=== PATIENT | male | born 1945 | race Caucasian/White ===

== ENCOUNTER 2018-12-14 12:40 | Outpatient (CLI) | payer MEDICARE ==
--- NOTE | 2018-12-14 14:39 | CT ---
CT HEAD NONCONTRAST: History: Slurred speech. Comparison: 10-17-16 FINDINGS: There is generalized atrophy with compensatory dilatation of the ventricular system. Mild chronic jordan rovascular ischemic disease is present. No intracranial hemorrhage, mass effect, or midline shift. IMPRESSION: 1. No acute intracranial abnormalities. 2. Global atrophy. 3. Chronic microvascular ischemic disease. POS: [facility]
== END 2018-12-14 12:41 | disposition home or self-care (01) ==
LOC: BICCT 12:40
PROVIDERS: ATTEND Nurse Practitioner Family
DX: R47.81 Slurred speech (principal); G31.9 Degenerative disease of nervous system, unspecified; I67.82 Cerebral ischemia
CPT/HCPCS: 70450

== ENCOUNTER 2020-05-20 16:29 | Inpatient (IN) | payer MEDICARE, OTHER ==
[~2020-05-20 16:29] MED LIST: Iopamidol-370 76% 500 ML 1 ML ONE
[2020-05-20] MEDS ORDERED: niCARdipine 20MG In NaCl 20 MG/200 ML BAG ONE (16:55)
[2020-05-20 17:15] LABS: #Basophils 0.1 thou/uL (0.0-0.2); #Eosinphils 0.2 thou/uL (0.0-0.7); #Lymphocytes 1.3 thou/uL (1.20-3.40); #Monocytes 0.9 thou/uL (0.11-0.59); #Neutrophils 4.6 thou/uL (1.40-6.50); %Basophils 0.8 % (0.0-1.0); %Lymphocytes 18.1 % (21.0-51.0); %Monocytes 13.3 % (0.0-10.0); %Neutrophils 64.7 % (42.0-75.0); Hemoglobin 15.7 g/dL (14.0-18.0); Mean Corpuscular HGB CONC 34.1 g/dL (32.0-36.0); Mean Corpuscular Hemoglobin 32.3 pg (27.0-31.0); Mean Corpuscular Volume 94.9 fL (78.0-98.0); Mean Platelet Volume 7.8 fL (7.4-10.4); Platelet Count 351 thou/uL (130-400); RBC Distribution Width 12.4 % (11.5-14.5); Red Blood Cell (RBC) Count 4.86 mill/uL (4.70-6.10); White Blood Cell (WBC) Count 7.1 thou/uL (4.8-10.8)
[2020-05-20 17:19] LABS: INR-International Normal Ratio 0.9; PTT 32.6 sec (22.9-36.1); Prothrombin Time 12.4 sec (12.0-14.7)
[2020-05-20 17:33] LABS: ALT (SGPT) 28 U/L (8-55); AST (SGOT) 33 U/L (5-34); Albumin 3.9 g/dL (3.4-4.8); Alkaline Phosphatase 92 U/L (40-110); Anion Gap 15 mmol/L (10-20); BUN (Urea Nitrogen) 18 mg/dL (8.4-25.7); Bilirubin, Total 0.5 mg/dL (0.2-1.2); CK (CPK) 94 U/L (30-200); Calc. Creatinine Clearance 0 mL/min (70-130); Calcium 8.9 mg/dL (7.8-10.44); Carbon Dioxide 24 mmol/L (23-31); Chloride 104 mmol/L (98-107); Estimated GFR-MDRD 77; Globulin 3.4 g/dL (2.4-3.5); Glucose 137 mg/dL (83-110); Protein, Total 7.3 g/dL (5.8-8.1); Sodium 139 mmol/L (136-145)
--- NOTE | 2020-05-20 17:51 | CT ---
CT BRAIN WITHOUT CONTRAST: Indications: Level I stroke alert. Aphasia, right sided weakness. Comparison: 12-14-18 FINDINGS: There is cortical atrophy again noted. Chronic ischemic white matter changes again noted. No evidence of acute cortical infarct. No hemorrhage or mass. Sinuses and mastoids are clear. IMPRESSION: Chronic changes which appear stable. No evidence of acute infarct. Findings relayed to Dr. Mccarty at 4:45 p.m. POS: [facility]
[2020-05-20] MEDS ORDERED: Acetaminophen 325 MG TAB PO PRN (18:03)
[2020-05-20 18:17] LABS: Bilirubin Negative (Negative); Blood, Urine Negative (Negative); Clarity Clear (Clear); Glucose, Urine (Dipstick) Normal (Negative); Ketone, Urine Negative (Negative); Leukocyte Negative Leu/uL (Negative); Nitrite Negative (Negative); Protein, Urine (Dipstick) Negative (Neg-Trace); Specific Gravity, Urine 1.017 (1.002-1.036); Urobilinogen Normal mg/dL (Less than 2); pH, Urine 7.5 (5.0-9.0)
--- NOTE | 2020-05-20 18:45 | CT ---
CTA HEAD WITH IV CONTRAST: Technique: Axial tomograms were obtained through the head following an angio protocol with multiplana r reconstruction and 3D post processing. Indication: Stroke protocol. Right sided weakness and aphasia. FINDINGS: There is occlusion of the left internal carotid artery at its origin. The intracranial left internal carotid artery is occluded in the temporal segment but does reconstitute in the cavernous portion of the ICA secondary to collateral flow from [place] of [place]. The right intracranial internal carotid artery is patent. The anterior cerebral arteries are patent and symmetric. Middle cerebral arteries are patent. There is no focal occlusion involving M1 segment. The M2 and M3 branches appear symmetric. The basilar artery is patent. Both posterior cerebral arteries appear patent. IMPRESSION: 1. 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 The left ICA reconstitutes at the cavernous sinus. 2. No proximal cerebral artery stenosis or occlusion identified. CTA NECK: Axial tomograms were obtained with multiplanar reconstructions and 3D post processing. Indications: Stroke protocol. FINDINGS: Atherosclerotic changes are seen at the aortic arch. No significant stenosis at the arch vessels. The common carotid arteries are both tortuous but are patent without significant stenosis. On the left there is severe atherosclerotic change at the left bulb. There is calcified and soft plaq ue present. There is occlusion of the left ICA at its origin. On the right there are atherosclerotic changes in the bulb and proximal right ICA. No significant shey nosis in the right ICA. Vertebral arteries are patent and symmetric. No soft tissue abnormality identified. IMPRESSION: 1. Occlusion of the left ICA at its origin. Finding relayed to Dr. Mccarty. Code CR POS: [facility]
[2020-05-20] MEDS ORDERED: Labetalol HCl 100 MG/20 ML VIAL SLOW IVP PRN (18:52)
[2020-05-20] MEDS ORDERED: hydrALAZINE 20 MG/ML VIAL SLOW IVP PRN (18:52)
[2020-05-20] MEDS ORDERED: Sodium Chloride 0.9% 1,000 ML IV SCH (19:00)
--- NOTE | 2020-05-20 19:17 | HP ---
CHIEF COMPLAINT: CVA with right-sided hemiparesis and aphasia. HISTORY OF PRESENT ILLNESS: A 75-year-old male with history of CVA without residual deficits and hypertension, presenting with right hemiparesis and expressive aphasia. The patient lives with his . This morning prior to arrival, he was noted to be not talking much, starring at open space per his . She called EMS. On arrival of the EMS, his blood pressure was 250/120. He arrived within 45 minutes to the ER. He was given labetalol and started on Cardene drip and his blood pressure improved with systolic in the range of [address] head is negative. However, CT angiogram showed left ICA obstruction. Neurosurgery, Dr. Tubbs, has been consulted by the ER physician. 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 Since patient arrived within 3 hours, he was given a tPA. Cardene drip was stopped after 5 minutes of initiation as his systolic blood pressure improved to 130 range. His symptoms of right-sided seems to be improving. He is moving his right arm, but still has significant aphasia. He will be admitted to the ICU for the next 24- hour close monitoring. Some of the information gathered from his as patient exhibits aphasia, but he is alert, oriented, and able to scribble something in the paper. REVIEW OF SYSTEMS: Reviewed with the and she denies any recent fever, night sweats, chills, productive cough per spouse. No recent episodes of vomiting or abdominal complaints. Complete review of systems not obtainable. ALLERGIES: HE HAS NO KNOWN DRUG ALLERGY. PAST MEDICAL HISTORY: CVA in the past without residual deficits, hypertension. He has a history of vertigo. MEDICATIONS: 1. Lipitor 40 mg at bedtime. 2. Antivert 25 mg t.i.d. 3. Lisinopril 20 mg daily. 4. Hydrochlorothiazide 12.5 mg daily. 5. Aspirin 325 mg daily. 6. Norvasc 5 mg at bedtime. SOCIAL HISTORY: He is a former tobacco abuser, quit roughly 20 years ago. No alcohol use. Lives with his . FAMILY HISTORY: Mother of complications from stroke at age 80 and father at age 80 with cardiovascular disease. PHYSICAL EXAMINATION: VITAL SIGNS: He is afebrile. Monitor show systolic blood pressure in the 130 range. He is saturating with 2 L oxygen by nasal cannula of 92%. GENERAL: The patient is alert, oriented, but he is not able to talk, but he is able to scribble. NEUROLOGICAL: Both the left upper and lower extremities have 4/5 in strength. Right upper extremity 1/5 in strength and right lower extremity 4/5 in strength. Sensation intact. Did not notice any significant facial droopiness. No nystagmus. Cranial nerves 2-12 seems to be intact. CARDIOVASCULAR: Regular rate and rhythm without murmurs, rubs, or gallops. LUNGS: Clear to auscultation bilaterally without wheezing, rales, or rhonchi. ABDOMEN: Soft, nontender, nondistended. Good bowel sounds. EXTREMITIES: No noticeable pitting edema or rash. LABORATORY DATA: CBC in the normal range. BMP, creatinine 0.95. Rest of the BMP panel, CMP panel in the normal range. Troponin 0.022. INR 0.9. IMPRESSION AND PLAN: This is a 75-year-old male with a history of CVA in the past without residual symptoms and hypertension, presenting with; 1. Right hemiparesis. 2. Expressive aphasia. 3. Hypertensive emergency with a history of hypertension. 4. He is status post tPA. He will be admitted in the ICU. We will do frequent neuro checks. 2D echo as well as carotid Doppler ordered along with MRA of the brain. Neurology consult placed. We will not initiate aspirin for next 24 hours. Close monitoring. If he is stable, then will transfer him to the Telemetry Stroke Unit. PT/OT as well as Speech evaluation. Nothing by mouth until Speech evaluation completed. No aspirin and anticoagulant for the next 24 hours. 5. Permissive hypertension until Systolic above 180 or diastolic above 110. 6. Hypertensive emergency, status post labetalol as well as transient Cardene drip. His blood pressure currently in the systolic 130 range, allow permissive hypertension next 24 to 48 hours. 7. We will check his A1c, lipid panel as well as TSH for completeness of the workup. 8. He is a full code. Defer anticoagulant and hypotonic solution as well as NSAIDs for now. 9. Full code. Job ID: [id number] [facility]
[2020-05-20] MEDS: Communication Order-Pharmacy FS SCH (23:36)
[2020-05-20] MEDS: Atorvastatin Calcium 40 MG TAB PO SCH (23:45)
[2020-05-20] MEDS: Famotidine/PF 20 mg/2ml Vial SLOW IVP SCH (23:51)
[2020-05-20 23:54] VITALS: BMI 24.5
--- NOTE | 2020-05-21 07:23 | CT ---
PRELIMINARY REPORT/[facility]/EMERGENCY AFTER HOURS PROCEDURE: EXAM: CT Head Without Intravenous Contrast. CLINICAL HISTORY: S/P t-PA TECHNIQUE: Axial computed tomography images of the head/brain without intravenous contrast. COMPARISON: CT\SR - CT BRAIN WO CON - 05/20/2020 04:37 PM CDT FINDINGS: BRAIN: No acute intraparenchymal hemorrhage. No mass lesion. No CT evidence for acute territorial infarct. N o midline shift or extra-axial collection. Hypodensity of the white matter is nonspecific but likely represents chronic microvascular ischemic d isease. VENTRICLES: No hydrocephalus. Volume loss. ORBITS: The orbits are unremarkable. SINUSES AND MASTOIDS: The paranasal sinuses and mastoid air cells are clear. SOFT TISSUES: No significant facial or scalp soft tissue swelling evident. No radiopaque foreign body is seen. BONES: No acute skull fracture. IMPRESSION: Chronic parenchymal changes. No acute intracranial hemorrhage. ELECTRONICALLY SIGNED BY: Tran De La Rosa MD May 21, 2020 3:59:49 AM CDT This report is intended for review by the ordering physician only, in accordance of law. If you recei ve this report in error, please call [facility] at [phone]. FINAL REPORT EMERGENCY AFTER HOURS CT BRAIN: I agree with the preliminary report provided by [facility]. No definite acute abnormality is evident. There is stable severe chronic small vessel white matter is chemic change with remote lacunar infarctions involving the basal ganglia bilaterally. POS:
[2020-05-21 08:38] LABS: Actual Bicarbonate (HCO3a) 22.7 mEq/L (22-28); Base Excess (BEa) -0.2 mEq/L (-2.0 to +3.0); CO2 Tension 32.8 mmHg (35.0-45.0); Calcium, Ionized (arterial) 1.13 mmol/L (1.12-1.30); Carboxyhemoglobin (COHb) 0.7 gm% (0.0-3.0); Hemoglobin (Hb) 16.3 g/dL (14.0-18.0); O2 Tension (PaO2), arterial 77.3 mmHg (> 70.0); Potassium - ABG Lab 4.06 mmol/L (3.70-5.30); pH, Arterial 7.46 (7.35-7.45)
[2020-05-21 08:39] LABS: Puncture Site LRA
--- NOTE | 2020-05-21 08:43 | MRI ---
MRI BRAIN WITH AND WITHOUT CONTRAST: DATE: 05/21/2020 HISTORY: 75-year-old male with acute stroke symptoms: Dysarthria. COMPARISON: 10/18/2016 TECHNIQUE: Multiplanar, multisequence MRI of the brain performed pre- and post-IV injection of gadolinium based contrast agent. FINDINGS: There is a new finding of 2 punctate foci of restricted diffusion in the left cerebral hemisphere rep resenting tiny acute lacunar infarctions. One of them is in the left periventricular white matter santiago radiata. The other is located superiorly near the vertex at junction between left superior fro ntal gyrus and middle frontal gyrus. There is a new finding of absence of normal flow void of the left carotid siphon. There are normal fl ow voids in the proximal vessels of left MCA and left MELO, by collateral circulation. There are no additional new findings since 10/18/2016. There are moderate chronic ischemic white matter changes of the cerebrum and brainstem, as previously demonstrated. There are multiple tiny old lacunar infarctions in the bilateral deep cerebral white matter, basal ga nglia, thalami, and james. There are multiple punctate tiny foci of remote microhemorrhages, including one in the right postcent ral gyrus, one in the right santiago radiata, many in the bilateral thalami, a few in the bilateral basal ganglia, one in the right midbrain cerebral peduncle, one in the right james, and several in the bilateral cerebellum. These are consistent with chronic hypertensive encephalopathy and/or cerebral amyloid angiopathy. There is a more confluent, larger hemosiderin stain in the posterior aspect of the right basal gangli a at junction with posterior aspects of right external and internal capsules. Postcontrast images are degraded by patient motion. No abnormal intra-axial enhancement identified. D ural venous sinuses are patent. There is no acute hemorrhage, mass effect, midline shift, or obstructive hydrocephalus, extra-axial f luid collection. IMPRESSION: 1) 2 tiny, punctate acute infarctions in the left cerebrum. 2) numerous tiny old lacunar infarctions in the bilateral basal ganglia, thalami, and brainstem. 3) evidence of old hemorrhage in right basal ganglia. 4) numerous, punctate, tiny microhemorrhages in the brain: Evidence for chronic hypertensive encephal opathy and/or cerebral amyloid angiopathy. 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 This occurred s ometime after the previous MRI of 10/18/2016.
--- NOTE | 2020-05-21 08:50 | ULT ---
CAROTID DOPPLER: Ultrasound Doppler study is performed of the extracranial carotid arteries. INDICATION: CVA. CTA of head and neck performed earlier today described left internal carotid artery occlusion a t its origin. FINDINGS: The extracranial arteries are evaluated with ultrasound and Doppler with color Doppler, spectral anal ysis, and velocity recordings. FINDINGS: Occlusion of the left internal carotid artery is identified by ultrasound which corresponds to the CT A findings. Right internal carotid artery velocities are within normal range. No evidence of significant stenosi s seen in the right internal carotid artery. The vertebral arteries are antegrade. IMPRESSION: Findings correspond to the CTA. There is occlusion of the left internal carotid artery at its origin . No evidence of stenosis in the right internal carotid artery. POS: [facility]
[2020-05-21 08:56] LABS: #Eosinphils 0.2 thou/uL (0.0-0.7); #Lymphocytes 1.4 thou/uL (1.20-3.40); #Monocytes 1.3 thou/uL (0.11-0.59); #Neutrophils 9.5 thou/uL (1.40-6.50); %Basophils 0.3 % (0.0-1.0); %Eosinophils 1.2 % (0.0-10.0); %Lymphocytes 10.9 % (21.0-51.0); %Monocytes 10.8 % (0.0-10.0); %Neutrophils 76.7 % (42.0-75.0); Hemoglobin 15.8 g/dL (14.0-18.0); Mean Corpuscular HGB CONC 33.6 g/dL (32.0-36.0); Mean Corpuscular Hemoglobin 31.9 pg (27.0-31.0); Mean Corpuscular Volume 95.1 fL (78.0-98.0); Mean Platelet Volume 6.9 fL (7.4-10.4); Platelet Count 344 thou/uL (130-400); RBC Distribution Width 12.4 % (11.5-14.5); Red Blood Cell (RBC) Count 4.93 mill/uL (4.70-6.10); White Blood Cell (WBC) Count 12.3 thou/uL (4.8-10.8)
[2020-05-21 09:02] LABS: PTT 32.2 sec (22.9-36.1); Prothrombin Time 13.2 sec (12.0-14.7)
[2020-05-21 09:11] LABS: CKMB 2.4 ng/mL (0-6.6); Phosphorus 2.5 mg/dL (2.3-4.7)
[2020-05-21 09:18] LABS: ALT (SGPT) 27 U/L (8-55); AST (SGOT) 24 U/L (5-34); Albumin 4.1 g/dL (3.4-4.8); Alkaline Phosphatase 85 U/L (40-110); Anion Gap 16 mmol/L (10-20); BUN (Urea Nitrogen) 16 mg/dL (8.4-25.7); Bilirubin, Total 1.1 mg/dL (0.2-1.2); Calc. Creatinine Clearance 89 mL/min (70-130); Calcium 8.9 mg/dL (7.8-10.44); Carbon Dioxide 21 mmol/L (23-31); Chloride 104 mmol/L (98-107); Estimated GFR-MDRD Greater than 90; Globulin 2.9 g/dL (2.4-3.5); Glucose 146 mg/dL (83-110); Magnesium 1.9 mg/dL (1.6-2.6); Potassium 4.2 mmol/L (3.5-5.1); Sodium 137 mmol/L (136-145)
[2020-05-21] MEDS: niCARdipine 25 MG in Sodium Chloride 0.9% 250 ML 240 ML IVPB PRN ×2 (09:40→20:11)
[2020-05-21] MEDS: Famotidine/PF 20 mg/2ml Vial SLOW IVP SCH ×2 (09:54→20:12)
[2020-05-21] MEDS ORDERED: levETIRAcetam In NaCl (Iso-Os) 1,500 MG in Premix Bag 1 BAG IVPB SCH (10:00)
[2020-05-21] MEDS ORDERED: Magnevist 469MG/ML 20 ML VIAL ONE (11:20)
[2020-05-21 12:13] LABS: Cardiac Risk 5.5 (Less than 4.5)
--- NOTE | 2020-05-21 12:35 | CON ---
NEUROLOGY CONSULTATION DATE OF CONSULTATION: 05/21/2020 REASON FOR CONSULTATION: Acute CVA, status post tPA. HISTORY OF PRESENT ILLNESS: Mr. Courtney Franco is a 75-year-old male with a history of prior CVA with residual deficits, hypertension, and hyperlipidemia, presented with acute onset right-sided weakness and expressive aphasia. According to the prior to arrival, he was not able to talk and was staring off in space. The called the EMS and at that time, the blood pressurewas 250/120. He arrived to the emergency room within [address] was done, which was negative for acute intracranial pathology. CT angiogram showed left ICA occlusion. Dr. Tubbs from Neurosurgery was consulted for possible intervention, but since this was chronic left ICA, no thrombectomy was done. The patient was given tPA since he was within 3-hour window. He was started on Cardene drip, which was later stopped because the blood pressure improved. The patient continues to have significant aphasia and right hemiparesis. He was given tPA and was admitted to the CCU for further management. REVIEW OF SYSTEMS: Per , he denies recent fever, illness, chest pain, abdominal pain, nausea, vomiting, or headache. ALLERGIES: NO KNOWN DRUG ALLERGIES. PAST MEDICAL HISTORY: Hypertension, hyperlipidemia, history of vertigo, and prior CVA without any residual deficits. SOCIAL HISTORY: , lives with his . There is no history of smoking, alcohol, or illegal drug abuse. HOME MEDICATIONS: 1. Lipitor 40 mg at bedtime. 2. Antivert 25 mg t.i.d. 3. Lisinopril 20 mg daily. 4. Hydrochlorothiazide 12.5 mg daily. 5. Aspirin 325 mg daily. 6. Norvasc 5 mg daily. FAMILY HISTORY: Significant for cardiovascular disease and stroke. - Objective Vital Signs & Weight: Vital Signs (12 hours) Temp Pulse Resp BP Pulse Ox 05/21/20 08:24 93 22 H 180/101 H 100 05/21/20 07:00 97.9 F 05/21/20 04:00 98.0 F Weight Weight 171 lb 4.787 oz Most Recent Monitor Data Heart Rate from ECG 109 NIBP 134/70 NIBP BP-Mean 88 Respiration from ECG 20 SpO2 98 I&O: 05/20/20 05/21/20 05/22/20 06:59 06:59 06:59 Intake Total 248 Output Total 395 525 Balance -147 -525 Additional Labs: Accuchecks 05/21/20 05/20/20 08:32 16:40 POC Glucose 136 H 141 H Active Medications Generic Name Dose Route Start Last Admin Trade Name Freq PRN Reason Stop Dose Admin Atorvastatin Calcium 40 mg 05/20/20 21:00 05/20/20 23:45 Lipitor PO Not Given HS ELSIE Famotidine 20 mg 05/20/20 21:00 05/21/20 09:54 Pepcid SLOW IVP 20 mg Q12HR ELSIE Administration Nicardipine HCl 25 mg/ Sodium 250 mls @ 0 mls/hr 05/20/20 18:52 05/21/20 09: 40 Chloride IVPB 250 mls INF PRN Administration SBP > 180 or DBP > 105 Protocol Titrate Sodium Chloride 1,000 mls @ 50 mls/hr 05/20/20 19:00 05/20/20 23:45 Normal Saline 0.9% IV 05/21/20 14:59 1,000 mls .Q20H [facility] Administration Miscellaneous Information 1 each 05/20/20 18:52 05/20/20 23:36 Communication Order-Pharmacy FS 05/21/20 18:53 Not Given NOW [facility] PHYSICAL EXAMINATION: CVS: Regular rate and rhythm. CHEST: Clear. ABDOMEN: Soft. NECK: Supple. NEUROLOGICAL EXAMINATION: Mental status; the patient is somnolent. He does not follow commands. He does not maintain eye contact. Cranial nerves; pupils are 4 mm, round and reactive to light. Face; right facial droop, left gaze preference. Corneals positive. Cough positive. Motor; right hemiparesis, right upper extremity 1/5, right lower extremity 2/5. Left upper and lower extremity 5/5. Spontaneous movement of the left upper and lower extremities seen. Sensory withdraws bilaterally to nailbed pressure, left greater than right. Cerebellar, unable to perform secondary to mental status. Gait deferred due to the patient's safety reasons. DATA REVIEWED: I reviewed the CT scan, which was negative for acute intracranial pathology. The labs were essentially unremarkable, which include CBC and CMP. ASSESSMENT AND PLAN: This is a 75-year-old male with history of prior cerebrovascular accident without residual symptoms, hypertension, hyperlipidemia , presented with acute onset expressive aphasia and right hemiparesis in the setting of hypertensive emergency. He is status post tPA and admitted to the CCU. Continue neuro checks every 2 hours. 2D echo to evaluate for left ventricular ejection fraction. MRI of the brain to evaluate for the extent of acute intracranial pressures. Permissive control of blood pressure at this time. Stat EEG ordered since the patient has had an episode of seizure-like activity. He is already loaded with Keppra 1500 mg IV and started on 500 mg IV q.12 hours. Continue Keppra 500 mg IV q.12 hours for seizure prophylaxis. Observe seizure precautions. No anticoagulation. Repeat head CT reviewed, which did not reveal any bleed or hemorrhage. No aspirin or other anticoagulants for the first 24 hours post tPA. Check hemoglobin A1c, lipid panel, and TSH. Continue home medications. Continue medical management per primary team. We will continue to follow. Thank you for the consult. Job ID: [id number] [facility]
[2020-05-21 12:36] LABS: SARS-CoV-2 MS2 Positive; SARS-CoV-2 N Gene Negative; SARS-CoV-2 S Gene Negative; SARS-CoV-2 by NAA Not Detected (NotDetected); SARS-CoV-2 orf1ab Negative
--- NOTE | 2020-05-21 14:16 | EEG ---
DATE OF SERVICE: 05/21/2020 ATTENDING PHYSICIAN: Talya Vincent MD This EEG was performed using 24-channel [employer]ikest[employer] video digital EEG machine with 24- disk electrodes. This was an extended 2 hours 5 minutes of inpatient video EEG recording. Digital analysis of the EEG was done for spike and seizure detection , which revealed no abnormalities. BACKGROUND: The posterior background rhythm was not observed. HYPERVENTILATION: Not performed. PHOTIC STIMULATION: No significant response seen with for stimulation. SLEEP: Drowsiness and sleep are observed. EEG DIAGNOSIS: 1. Generalized irregular theta activity, left greater than right. 2. Absence of posterior background rhythm. CLINICAL INTERPRETATION: This EEG is consistent with focal segment dysfunction in the left frontotemporal region. There is also evidence of moderate generalized nonspecific cerebral dysfunction. No ictal or interictal epileptiform abnormalities seen during the recording. Job ID: [id number] [facility]
--- NOTE | 2020-05-21 14:25 | PDOC.HOSPP ---
- Subjective Encounter Date: 05/21/20 Encounter Time: 09:20 Subjective: Nursing called me urgently this morning about patient's clinical worsening condition. He went to the MRI and after MRI he became quite unresponsive.. Before going to MRI his systolic blood pressure 168 and oxygenating well. He was following commands and on 2 L oxygen. After MRI is completed his systolic blood pressure was 200 range and satting 92%. he was not opening eyes and not following commands. Stat ABG looked okay. His lactic acid is 3. we are running a normal saline at 50. Echo is completed at bedside. While I was observing him and discussing with the RN his clinical course this morning patient has a cough. He is responding to tactile stimulation on his left arm. His right side is flaccid. Touch base with Dr. Angel briefly and the patient may need to be intubated if he is getting worse. currently he is coughing and protecting his airway. Ph 7.4 , pCO2 of 32 and pO2 of 77. - Objective Vital Signs & Weight: Vital Signs (12 hours) Temp Pulse Resp BP Pulse Ox 05/21/20 08:24 93 22 H 180/101 H 100 05/21/20 07:00 97.9 F 05/21/20 04:00 98.0 F Weight Weight 171 lb 4.787 oz Most Recent Monitor Data Heart Rate from ECG 109 NIBP 134/70 NIBP BP-Mean 88 Respiration from ECG 20 SpO2 98 I&O: 05/20/20 05/21/20 05/22/20 06:59 06:59 06:59 Intake Total 248 Output Total 395 525 Balance -147 -525 Result Diagrams: 05/21/20 08:39 05/21/20 08:39 Additional Labs: Accuchecks 05/21/20 05/20/20 08:32 16:40 POC Glucose 136 H 141 H Hospitalist ROS - Medication Medications: Active Medications Generic Name Dose Route Start Last Admin Trade Name Freq PRN Reason Stop Dose Admin Atorvastatin Calcium 40 mg 05/20/20 21:00 05/20/20 23:45 Lipitor PO Not Given HS ELSIE Famotidine 20 mg 05/20/20 21:00 05/21/20 09:54 Pepcid SLOW IVP 20 mg Q12HR ELSIE Administration Nicardipine HCl 25 mg/ Sodium 250 mls @ 0 mls/hr 05/20/20 18:52 05/21/20 09: 40 Chloride IVPB 250 mls INF PRN Administration SBP > 180 or DBP > 105 Protocol Titrate Sodium Chloride 1,000 mls @ 50 mls/hr 05/20/20 19:00 05/20/20 23:45 Normal Saline 0.9% IV 05/21/20 14:59 1,000 mls .Q20H [facility]E Administration Miscellaneous Information 1 each 05/20/20 18:52 05/20/20 23:36 Communication Order-Pharmacy FS 05/21/20 18:53 Not Given NOW [facility]E - Exam General Appearance: ill appearing Eye: PERRL ENT: normocephalic atraumatic Neck: supple Heart: RRR Respiratory: CTAB Gastrointestinal: soft, normal bowel sounds Neurological: facial droop, hemiplegia Psychiatric: normal affect, normal behavior, not oriented Hosp A/P - Plan worsening left hemiparesis Metabilic encephalopathy amyloid angiopathy - Brain MRI showed punctate acute infarct in the left cerebrum. Old lacunar infarct in the bilateral basal ganglia thalamus and brainstem. Evidence of old hemorrhage in the right basal ganglia chronic hypertensive encephalopathy associated with hypertensive changes and amyloid angiopathy. normotensive. TSH normal range LDL is 169. N.p.o. for now until more clinical stabilization. I talked to the patient's daughter Demetrice at [phone] and updated her. is Keyshawn at [phone]. Palliative consult. prognosis guarded.
--- NOTE | 2020-05-21 14:36 | CT ---
CT HEAD WITHOUT IV CONTRAST COMPARISON: 05/21/2020. MRI brain is also available for comparison obtained on 05/21/2020 and 8:15 hours. HISTORY: Altered mental status. Post TPA administration. TECHNIQUE: Axial CT imaging at 5 mm intervals from vertex through skull base without contrast FINDINGS: There is now evidence of a hyperdense left middle cerebral artery with diminished attenuation seen in the left frontal lobe including the left basal ganglia and a portion of the left temporal lobe related to acute infarction in the distribution of the left middle cerebral artery. This finding was not seen on the recent head CT or MRI examination. There is mild sulcal effacement in the region of the infarction. No intraparenchymal or extra-axial hemorrhage is identified. Again noted are remote lacunar infarctions in the right basal ganglia and each thalamus with evidence of chronic small vessel ischemic changes also again seen. Mild cerebral volume loss is again seen. Ventricular system is normal in size, shape, and position fo r the degree of sulcal atrophy. Visualized paranasal sinuses are clear. Osseous structures appear intact. No other interval change. IMPRESSION: 1. Acute infarction in the distribution of the left middle cerebral artery. A hyperdense left middle cerebral artery is present suggesting thrombus in the left middle cerebral artery. 2. No intraparenchymal or extra-axial hemorrhage is identified. 3. Chronic changes. 4. Above findings discussed with Dr. Angel on 05/21/2020 at 1429 hours.
[2020-05-21 19:06] LABS: #Eosinphils 0.1 thou/uL (0.0-0.7); #Lymphocytes 1.2 thou/uL (1.20-3.40); #Monocytes 1.5 thou/uL (0.11-0.59); #Neutrophils 10.3 thou/uL (1.40-6.50); %Basophils 0.3 % (0.0-1.0); %Eosinophils 0.4 % (0.0-10.0); %Lymphocytes 9.1 % (21.0-51.0); %Monocytes 11.4 % (0.0-10.0); %Neutrophils 78.8 % (42.0-75.0); Hemoglobin 15.6 g/dL (14.0-18.0); Mean Corpuscular HGB CONC 32.9 g/dL (32.0-36.0); Mean Corpuscular Hemoglobin 31.4 pg (27.0-31.0); Mean Corpuscular Volume 95.5 fL (78.0-98.0); Mean Platelet Volume 7.3 fL (7.4-10.4); Platelet Count 254 thou/uL (130-400); RBC Distribution Width 12.5 % (11.5-14.5); Red Blood Cell (RBC) Count 4.95 mill/uL (4.70-6.10); White Blood Cell (WBC) Count 13.1 thou/uL (4.8-10.8)
[2020-05-21 19:26] LABS: Anion Gap 17 mmol/L (10-20); BUN (Urea Nitrogen) 14 mg/dL (8.4-25.7); Calc. Creatinine Clearance 101 mL/min (70-130); Calcium 8.8 mg/dL (7.8-10.44); Carbon Dioxide 15 mmol/L (23-31); Cardiac Risk 5.4 (Less than 4.5); Chloride 108 mmol/L (98-107); Cholesterol 225 mg/dl (< 200 Desired); Estimated GFR-MDRD Greater than 90; Glucose 117 mg/dL (83-110); HDL Cholesterol 42 mg/dL (>60 Neg Risk); LDL Cholesterol, Calculated 151 mg/dL; Potassium 4.2 mmol/L (3.5-5.1); Sodium 136 mmol/L (136-145); Triglycerides 158 mg/dL (Less than 150)
[2020-05-21] MEDS: Communication Order-Pharmacy FS SCH (19:29)
[2020-05-21] MEDS: Atorvastatin Calcium 40 MG TAB PO SCH (20:13)
--- NOTE | 2020-05-21 22:30 | CON ---
DATE OF CONSULTATION: 05/21/2020 HISTORY OF PRESENT ILLNESS: Mr. Franco is a 75-year-old male, who presented with hemiparesis and received tPA. Apparently, he helped himself to MRI table today , but mild unresponsive. He has subsequently gone back for another repeat imaging of his brain, which shows a new thrombotic event. His family since made him a do not resuscitate patient. PAST MEDICAL HISTORY: Remarkable for; 1. Hypertension. 2. disorder. 3. History of vertigo. FAMILY HISTORY: Negative for lung disease in early age. His mother did from stroke. SOCIAL HISTORY: Quit smoking 20 years ago. He is not a drinker. REVIEW OF SYSTEMS: Not obtainable. PHYSICAL EXAMINATION: NEUROLOGIC: He is taking things in his left side, not spontaneously moving his right side. His pupils are equal this morning, it became asymmetric this afternoon. VITAL SIGNS: Blood pressure 120/60, heart rate 112, respiratory rates in the teens to low 20s. HEAD AND NECK: Unremarkable. LUNGS: Clear. HEART: Regular rhythm. S1 and S2 are normal. ABDOMEN: Soft and nontender. EXTREMITIES: No clubbing, cyanosis, or edema. LABORATORY DATA: White count 13.1, hemoglobin 15.6, and platelets 254. Electrolytes are unremarkable. Anion gap is 13 and creatinine is 0.7. IMPRESSION: Thrombotic cerebrovascular accident, status post tPA with a recurrence of his symptoms and a new thrombotic cerebrovascular accident this afternoon. His prognosis is extremely guarded. Family is aware of coordinating care. This is a 70 min consult with greater than 50% of the time spent on the unit with coordination of care. Job ID: [id number] MTDD
[2020-05-22] MEDS: Acetaminophen 650 MG Suppository PR PRN (00:01)
[2020-05-22 04:20] LABS: Hemoglobin A1c 6.2 % (4.0-6.0)
[2020-05-22] MEDS: Aspirin 325 mg Enteric Coated Tablet PO SCH (07:46)
[2020-05-22] MEDS: Famotidine/PF 20 mg/2ml Vial SLOW IVP SCH ×2 (07:52→20:14)
--- NOTE | 2020-05-22 10:37 | PDOC.FMACP ---
Advance Care Planning - Problem (1) Palliative care encounter Status: Acute Code(s): Z51.5 - ENCOUNTER FOR PALLIATIVE CARE (2) TIA (transient ischemic attack) Status: Acute Qualifiers: Transient cerebral ischemia type: unspecified Qualified Code(s): G45.9 - Transient cerebral ischemic attack, unspecified (3) Elevated hemoglobin A1c Status: Chronic Code(s): R73.09 - OTHER ABNORMAL GLUCOSE (4) HTN (hypertension) Status: Chronic Code(s): I10 - ESSENTIAL (PRIMARY) HYPERTENSION Qualifiers: Hypertension type: essential hypertension Qualified Code(s): I10 - Essential (primary) hypertension - Note Participants: family, palliative care Summary: Introduced Advanced Care Planning conversation to family, allowed an opportunity to decline. The diagnosis, prognosis and goals of care were discussed. Appropriate forms and documentation to accomplish the goals of care were discussed. All questions were answered. elected to transition to DNAR at this time. Please also refer to Palliative Care notes in note section. The Palliative Care Team will be engaged to assist with completion of any outstanding forms that are needed.
--- NOTE | 2020-05-22 12:05 | PDOC.HOSPP ---
- Subjective Encounter Date: 05/22/20 Encounter Time: 10:10 Subjective: I talked to the nurse patient is moving his left side spontaneously but no purposeful movement. He is not tracking his eyes are deviated to the left side. Echo showed EF of 60% mild mitral regurgitation moderately thickened aortic wall mild tricuspid regurgitation normal pulmonary artery pressure. I talked to his Meghan at [phone] along with their daughter and they are agreeable for hospice consult and their recommendations. - Objective Vital Signs & Weight: Vital Signs (12 hours) Temp Pulse Ox 05/22/20 11:41 96 05/22/20 08:00 98.6 F 98 05/22/20 04:00 98.5 F Weight Weight 169 lb 1.513 oz Most Recent Monitor Data Heart Rate from ECG 97 NIBP 136/98 NIBP BP-Mean 102 Respiration from ECG 21 SpO2 95 I&O: 05/21/20 05/22/20 05/23/20 06:59 06:59 06:59 Intake Total 248 1615 409 Output Total 395 1535 275 Balance -147 80 134 Result Diagrams: 05/21/20 18:31 05/21/20 18:31 Hospitalist ROS - Medication Medications: Active Medications Generic Name Dose Route Start Last Admin Trade Name Freq PRN Reason Stop Dose Admin Acetaminophen 650 mg 05/20/20 18:03 05/22/20 00:01 Tylenol [place] 650 mg Q4H PRN Administration Headache/Fever/Mild Pain (1-3) Aspirin 325 mg 05/22/20 09:00 05/22/20 07:46 Ecotrin PO Not Given DAILY ELSIE Atorvastatin Calcium 40 mg 05/20/20 21:00 05/21/20 20:13 Lipitor PO Not Given HS ELSIE Famotidine 20 mg 05/20/20 21:00 05/22/20 07:52 Pepcid SLOW IVP 20 mg Q12HR ELSIE Administration Nicardipine HCl 25 mg/ Sodium 250 mls @ 0 mls/hr 05/20/20 18:52 05/21/20 20: 11 Chloride IVPB 250 mls INF PRN Administration SBP > 180 or DBP > 105 Protocol Titrate Levetiracetam 500 mg/ Device 100 mls @ 200 mls/hr 05/21/20 21:00 05/22/20 07: 51 IVPB 100 mls BID ELSIE Administration - Exam General Appearance: ill appearing Eye: PERRL Eye - other findings: Eyes deviated to the lateral side pupils equal and round 3 mm in diameter ENT: normocephalic atraumatic Neck: supple Respiratory: CTAB, normal chest expansion Gastrointestinal: soft, normal bowel sounds Psychiatric: not oriented Hosp A/P - Plan worsening left hemiparesis Metabilic encephalopathy amyloid angiopathy normotensive. TSH normal range LDL is 169. N.p.o. for now until more clinical stabilization. I talked to the patient's daughter Demetrice at [phone] and updated her. is Keyshawn at [phone]. Palliative consult. prognosis guarded. - Brain MRI showed punctate acute infarct in the left cerebrum. Old lacunar infarct in the bilateral basal ganglia thalamus and brainstem. Evidence of old hemorrhage in the right basal ganglia chronic hypertensive encephalopathy associated with hypertensive changes and amyloid angiopathy. Echo showed EF of 60% mild mitral regurgitation moderately thickened aortic wall mild tricuspid regurgitation normal pulmonary artery pressure. I talked to his Meghan at [phone] along with their daughter and they are agreeable for hospice consult and their recommendations. DNAR
--- NOTE | 2020-05-22 12:35 | PDOC.HOSPP ---
- Subjective Encounter Date: 05/22/20 Subjective: NEUROLOGY PROGRESS NOTE Patient extremely somnolent and does not follow commands. - Objective Vital Signs & Weight: Vital Signs (12 hours) Temp Pulse Ox 05/22/20 11:41 96 05/22/20 08:00 98.6 F 98 05/22/20 04:00 98.5 F Weight Weight 169 lb 1.513 oz Most Recent Monitor Data Heart Rate from ECG 95 NIBP 153/97 NIBP BP-Mean 107 Respiration from ECG 22 SpO2 90 I&O: 05/21/20 05/22/20 05/23/20 06:59 06:59 06:59 Intake Total 248 1615 409 Output Total 395 1535 275 Balance -147 80 134 Result Diagrams: 05/21/20 18:31 05/21/20 18:31 Radiology Reviewed by me: Yes EKG Reviewed by me: Yes Hospitalist ROS - Review of Systems ROS unobtainable: due to mental status - Medication Medications: Active Medications Generic Name Dose Route Start Last Admin Trade Name Freq PRN Reason Stop Dose Admin Acetaminophen 650 mg 05/20/20 18:03 05/22/20 00:01 Tylenol [place] 650 mg Q4H PRN Administration Headache/Fever/Mild Pain (1-3) Aspirin 325 mg 05/22/20 09:00 05/22/20 07:46 Ecotrin PO Not Given DAILY ELSIE Atorvastatin Calcium 40 mg 05/20/20 21:00 05/21/20 20:13 Lipitor PO Not Given HS ELSIE Famotidine 20 mg 05/20/20 21:00 05/22/20 07:52 Pepcid SLOW IVP 20 mg Q12HR ELSIE Administration Nicardipine HCl 25 mg/ Sodium 250 mls @ 0 mls/hr 05/20/20 18:52 05/21/20 20: 11 Chloride IVPB 250 mls INF PRN Administration SBP > 180 or DBP > 105 Protocol Titrate Levetiracetam 500 mg/ Device 100 mls @ 200 mls/hr 05/21/20 21:00 05/22/20 07: 51 IVPB 100 mls BID ELSIE Administration - Exam General Appearance: ill appearing Eye: anicteric sclera ENT: normocephalic atraumatic Neck: supple Heart: RRR Respiratory: CTAB Gastrointestinal: soft Extremities: no cyanosis Skin: normal turgor Neurological: facial droop, hemiplegia, speech deficit Neurological - other findings: Left gaze preference, left hemiparesis. Musculoskeletal: normal tone Psychiatric: not oriented, somnolent, lethargic Hosp A/P (1) Acute CVA (cerebrovascular accident) Code(s): I63.9 - CEREBRAL INFARCTION, UNSPECIFIED Status: Acute (2) Vertigo Code(s): R42 - DIZZINESS AND GIDDINESS Status: Acute (3) Dyslipidemia Code(s): E78.5 - HYPERLIPIDEMIA, UNSPECIFIED Status: Chronic (4) Elevated hemoglobin A1c Code(s): R73.09 - OTHER ABNORMAL GLUCOSE Status: Chronic (5) HTN (hypertension) Code(s): I10 - ESSENTIAL (PRIMARY) HYPERTENSION Status: Chronic Qualifiers: Hypertension type: essential hypertension Qualified Code(s): I10 - Essential (primary) hypertension - Plan PT/OT, speech therapy, DVT proph w/SCDs 75 year old with speech deficit and acute onset left sided weakness. S/P tpa. MRI Brain reviewed which was consistent with acute infarction. No evidence of hemorrhage on imaging 24 hours post tpa. Consider starting aspirin for secondary stroke prevention. Permissive BP control. Neurochecks every 2 hours. Strict control of BG. Continue Keppra for seizure prophylaxis. EEG reviewed and was negative for seizure activity. Observe seizure precautions. Ativan 2 mg IV for seizure greater than 2 minutes. Continue medical management per primary team.
--- NOTE | 2020-05-22 15:32 | PRG ---
DATE OF SERVICE: 05/22/2020 SUBJECTIVE: Courtney Franco is clinically unchanged. He is still hemiplegic. He is fidgety. OBJECTIVE: VITAL SIGNS: Heart rates in the 90s, blood pressure is 155/92, respiratory rates in the 20s. LUNGS: Unchanged. HEART: Unchanged. ABDOMEN: Unchanged. LABORATORY DATA: No new lab today. IMPRESSION: Thrombotic CVA. Apparently, the family is bringing discharge plans. Job ID: [id number]
[2020-05-22] MEDS: Atorvastatin Calcium 40 MG TAB PO SCH (19:22)
[2020-05-23 06:01] LABS: #Monocytes 1.6 thou/uL (0.11-0.59); #Neutrophils 10.6 thou/uL (1.40-6.50); %Basophils 0.4 % (0.0-1.0); %Eosinophils 0.3 % (0.0-10.0); %Lymphocytes 7.6 % (21.0-51.0); %Monocytes 11.7 % (0.0-10.0); Hemoglobin 14.7 g/dL (14.0-18.0); Mean Corpuscular HGB CONC 31.2 g/dL (32.0-36.0); Mean Corpuscular Volume 96.2 fL (78.0-98.0); Mean Platelet Volume 7.5 fL (7.4-10.4); Platelet Count 326 thou/uL (130-400); RBC Distribution Width 12.3 % (11.5-14.5); Red Blood Cell (RBC) Count 4.89 mill/uL (4.70-6.10); White Blood Cell (WBC) Count 13.3 thou/uL (4.8-10.8)
[2020-05-23 06:22] LABS: Anion Gap 17 mmol/L (10-20); BUN (Urea Nitrogen) 28 mg/dL (8.4-25.7); Calc. Creatinine Clearance 92 mL/min (70-130); Calcium 8.8 mg/dL (7.8-10.44); Carbon Dioxide 19 mmol/L (23-31); Chloride 107 mmol/L (98-107); Estimated GFR-MDRD Greater than 90; Glucose 108 mg/dL (83-110); Potassium 3.7 mmol/L (3.5-5.1); Sodium 139 mmol/L (136-145)
[2020-05-23] MEDS: Aspirin 325 mg Enteric Coated Tablet PO SCH (07:18)
[2020-05-23] MEDS: Famotidine/PF 20 mg/2ml Vial SLOW IVP SCH ×2 (09:07→20:32)
--- NOTE | 2020-05-23 10:16 | PDOC.FMACP ---
Advance Care Planning - Problem (1) Palliative care encounter Status: Acute Code(s): Z51.5 - ENCOUNTER FOR PALLIATIVE CARE (2) TIA (transient ischemic attack) Status: Acute Qualifiers: Transient cerebral ischemia type: unspecified Qualified Code(s): G45.9 - Transient cerebral ischemic attack, unspecified (3) Elevated hemoglobin A1c Status: Chronic Code(s): R73.09 - OTHER ABNORMAL GLUCOSE (4) HTN (hypertension) Status: Chronic Code(s): I10 - ESSENTIAL (PRIMARY) HYPERTENSION Qualifiers: Hypertension type: essential hypertension Qualified Code(s): I10 - Essential (primary) hypertension - Note Participants: family, surrogate decision-maker, palliative care Summary: Palliative Care has addressed Advanced Care Planning with patient family secondary to patient altered mental status. The diagnosis, prognosis and goals of care were discussed. Appropriate forms and documentation to accomplish the goals of care were discussed. All questions were answered. Patient is a DNAR, will attempt to complete OOHDNAR. Family is electing to transition to Hospice with comfort measures. The Palliative Care Team will continue to assist with completion of any outstanding forms as identified. Please also refer to Palliative Care RN notes in note section.
--- NOTE | 2020-05-23 10:39 | PDOC.PALPN ---
Palliative Progress Note - Subjective Non responsive, mildly labored respirations at 22. Jerking movements to right extremity. Palliative Care communicating with family, awaiting evaluation for inpatient hospice. - Objective Vital Signs: Vital Signs - Most Recent Temp Pulse Resp BP Pulse Ox 98.8 F 95 15 164/81 H 94 L 05/23/20 07:45 05/23/20 07:45 05/23/20 07:45 05/23/20 07:45 05/23/20 07:45 - Physical Exam Constitutional: encephalitic, ill appearing HEENT: moist MMs, sclera anicteric Respiratory: no wheezing, diminished lung sound, labored respirations Deviation from normal: mildly adventicious to upper lobes Cardiovascular: RRR Deviation from normal: elevated HR at 110 Gastrointestinal: soft, incontinent Genitourinary: bradshaw catheter Musculoskeletal: no cyanosis, diffuse muscle atrophy Neurology: hemiplegia Skin: cap refill <2 seconds, fragile Deviation from normal: encephalopathic - Assessment (1) Palliative care encounter Code(s): Z51.5 - ENCOUNTER FOR PALLIATIVE CARE Current Visit: Yes Status: Acute (2) TIA (transient ischemic attack) Current Visit: No Status: Acute Qualifiers: Transient cerebral ischemia type: unspecified Qualified Code(s): G45.9 - Transient cerebral ischemic attack, unspecified (3) Elevated hemoglobin A1c Code(s): R73.09 - OTHER ABNORMAL GLUCOSE Current Visit: No Status: Chronic (4) HTN (hypertension) Code(s): I10 - ESSENTIAL (PRIMARY) HYPERTENSION Current Visit: No Status: Chronic Qualifiers: Hypertension type: essential hypertension Qualified Code(s): I10 - Essential (primary) hypertension - Plan Plan: Will add Ativan and Morphine PRN for shortness of breath and agitation. Scopolamine TD as well as Atropine eye gtts PRN for mitigation of secretions. Hospice to evaluate for inpatient care related to need to mange symptoms of end of life/terminal restlessness. Family has expressed that Mr Franco would not want live sustaining measures with poor meaningful recovery. Discussed symptom management with patient primary RN. Communicated with Dr Selby. Palliative Care registrar to complete OOHDNAR Please also refer to Palliative Care RN notes in note section. [35] minutes spent on this encounter with >50% of the time in counseling and coordination of care. - ROS Non Response: due to mental status
[2020-05-23] MEDS ORDERED: Scopolamine 1.5 mg/72 hour Patch TD SCH (10:45)
[2020-05-23] MEDS: Lorazepam 2 MG/ML VIAL SLOW IVP PRN ×3 (11:36→22:10)
[2020-05-23] MEDS: Atropine Sulfate 1% Ophth Soln 5 ml Bottle PO PRN ×2 (11:39→17:38)
[2020-05-23] MEDS ORDERED: Lorazepam 2 MG/ML VIAL SLOW IVP PRN ×2 (13:01→13:16)
--- NOTE | 2020-05-23 13:03 | PDOC.HOSPP ---
- Subjective Encounter Date: 05/23/20 Encounter Time: 10:40 Subjective: pt remains the same no improvement neurologically. I talked to the palliative. Comfort care medications introduced. Hospice evaluation pending. - Objective Vital Signs & Weight: Vital Signs (12 hours) Temp Pulse Resp BP BP Pulse Ox 05/23/20 09:07 94 L 05/23/20 07:45 98.8 F 95 15 164/81 H 94 L 05/23/20 04:46 98.9 F 95 18 166/88 H 94 L Weight Weight 162 lb 4 oz Most Recent Monitor Data Heart Rate from ECG 95 NIBP 155/93 NIBP BP-Mean 107 Respiration from ECG 22 SpO2 91 I&O: 05/22/20 05/23/20 05/24/20 06:59 06:59 06:59 Intake Total 1615 509 Output Total 1535 775 Balance 80 -266 Result Diagrams: 05/23/20 05:30 05/23/20 05:30 Hospitalist ROS - Medication Medications: Active Medications Generic Name Dose Route Start Last Admin Trade Name Freq PRN Reason Stop Dose Admin Acetaminophen 650 mg 05/20/20 18:03 05/22/20 00:01 Tylenol [place] 650 mg Q4H PRN Administration Headache/Fever/Mild Pain (1-3) Aspirin 325 mg 05/22/20 09:00 05/23/20 07:18 Ecotrin PO Not Given DAILY ELSIE Atorvastatin Calcium 40 mg 05/20/20 21:00 05/22/20 19:22 Lipitor PO Not Given HS ELSIE Atropine Sulfate 0 drop 05/23/20 10:43 05/23/20 11:39 Atropine 1% Ophth Soln PO 3 drp Q4H PRN Administration Dry Eyes Famotidine 20 mg 05/20/20 21:00 05/23/20 09:07 Pepcid SLOW IVP 20 mg Q12HR ELSIE Administration Nicardipine HCl 25 mg/ Sodium 250 mls @ 0 mls/hr 05/20/20 18:52 05/21/20 20: 11 Chloride IVPB 250 mls INF PRN Administration SBP > 180 or DBP > 105 Protocol Titrate Levetiracetam 500 mg/ Device 100 mls @ 200 mls/hr 05/21/20 21:00 05/23/20 09: 10 IVPB 100 mls BID ELSIE Administration Lorazepam 1 mg 05/23/20 10:45 05/23/20 11:36 Ativan SLOW IVP 1 mg Q4H PRN Administration Anxiety/Agitation Scopolamine 3 mg 05/23/20 10:45 05/23/20 11:35 Transderm Scop TD 3 mg Q3D ELSIE Administration - Exam General Appearance: ill appearing Eye: PERRL ENT: normocephalic atraumatic Neck: supple Heart: RRR Respiratory: CTAB, normal chest expansion Neurological: facial droop, hemiplegia, speech deficit Psychiatric: not oriented Hosp A/P - Plan worsening left hemiparesis Metabilic encephalopathy amyloid angiopathy s/p TPA normotensive. TSH normal range LDL is 169. N.p.o. for now until more clinical stabilization. I talked to the patient's daughter Demetrice at [phone] and updated her. is Keyshawn at [phone]. Palliative consult. prognosis guarded. - Brain MRI showed punctate acute infarct in the left cerebrum. Old lacunar infarct in the bilateral basal ganglia thalamus and brainstem. Evidence of old hemorrhage in the right basal ganglia chronic hypertensive encephalopathy associated with hypertensive changes and amyloid angiopathy. Echo showed EF of 60% mild mitral regurgitation moderately thickened aortic wall mild tricuspid regurgitation normal pulmonary artery pressure. I talked to his Meghan at [phone] along with their daughter and they are agreeable for hospice consult and their recommendations. DNAR Comfort care medications introduced. Hospice evaluation pending.
--- NOTE | 2020-05-23 14:28 | PDOC.HOSPP ---
- Subjective Encounter Date: 05/23/20 Subjective: NEUROLOGY PROGRESS NOTE Patient continues to be somnolent and does not follow commands. - Objective Vital Signs & Weight: Vital Signs (12 hours) Temp Pulse Resp BP BP Pulse Ox 05/23/20 09:07 94 L 05/23/20 07:45 98.8 F 95 15 164/81 H 94 L 05/23/20 04:46 98.9 F 95 18 166/88 H 94 L Weight Weight 162 lb 4 oz Most Recent Monitor Data Heart Rate from ECG 95 NIBP 155/93 NIBP BP-Mean 107 Respiration from ECG 22 SpO2 91 I&O: 05/22/20 05/23/20 05/24/20 06:59 06:59 06:59 Intake Total 1615 509 Output Total 1535 775 Balance 80 -266 Result Diagrams: 05/23/20 05:30 05/23/20 05:30 Radiology Reviewed by me: Yes EKG Reviewed by me: Yes Hospitalist ROS - Review of Systems ROS unobtainable: due to mental status - Medication Medications: Active Medications Generic Name Dose Route Start Last Admin Trade Name Freq PRN Reason Stop Dose Admin Acetaminophen 650 mg 05/20/20 18:03 05/22/20 00:01 Tylenol [place] 650 mg Q4H PRN Administration Headache/Fever/Mild Pain (1-3) Atorvastatin Calcium 40 mg 05/20/20 21:00 05/22/20 19:22 Lipitor PO Not Given HS ELSIE Atropine Sulfate 0 drop 05/23/20 10:43 05/23/20 11:39 Atropine 1% Ophth Soln PO 3 drp Q4H PRN Administration Dry Eyes Famotidine 20 mg 05/20/20 21:00 05/23/20 09:07 Pepcid SLOW IVP 20 mg Q12HR ELSIE Administration Nicardipine HCl 25 mg/ Sodium 250 mls @ 0 mls/hr 05/20/20 18:52 05/21/20 20: 11 Chloride IVPB 250 mls INF PRN Administration SBP > 180 or DBP > 105 Protocol Titrate Levetiracetam 500 mg/ Device 100 mls @ 200 mls/hr 05/21/20 21:00 05/23/20 09: 10 IVPB 100 mls BID ELSIE Administration Lorazepam 1 mg 05/23/20 10:45 07/29/20 11:36 Ativan SLOW IVP 1 mg Q4H PRN Administration Anxiety/Agitation Scopolamine 3 mg 05/23/20 10:45 05/23/20 11:35 Transderm Scop TD 3 mg Q3D ELSIE Administration - Exam General Appearance: ill appearing Eye: anicteric sclera Eye - other findings: Left gaze preference ENT: normocephalic atraumatic Neck: supple Heart: RRR Respiratory: CTAB Gastrointestinal: soft Extremities: no cyanosis Skin: normal turgor Neurological: no new deficit, facial droop, hemiplegia, speech deficit Musculoskeletal: no muscle wasting Psychiatric: somnolent Hosp A/P (1) Acute CVA (cerebrovascular accident) Code(s): I63.9 - CEREBRAL INFARCTION, UNSPECIFIED Status: Acute (2) Vertigo Code(s): R42 - DIZZINESS AND GIDDINESS Status: Acute (3) Dyslipidemia Code(s): E78.5 - HYPERLIPIDEMIA, UNSPECIFIED Status: Chronic (4) Elevated hemoglobin A1c Code(s): R73.09 - OTHER ABNORMAL GLUCOSE Status: Chronic (5) HTN (hypertension) Code(s): I10 - ESSENTIAL (PRIMARY) HYPERTENSION Status: Chronic Qualifiers: Hypertension type: essential hypertension Qualified Code(s): I10 - Essential (primary) hypertension - Plan PT/OT, speech therapy, DVT proph w/SCDs Consults: Palliative Care 75 year old with speech deficit and acute onset left sided weakness. S/P tpa not doing well. Prognosis guarded. Palliative care team on board. Hospice evaluation pending. MRI Brain reviewed which was consistent with acute infarction. No evidence of hemorrhage on imaging 24 hours post tpa. aspirin for secondary stroke prevention. Permissive BP control. Neurochecks every 2 hours. Strict control of BG. Continue Keppra for seizure prophylaxis. EEG reviewed and was negative for seizure activity. Observe seizure precautions. Ativan 2 mg IV for seizure greater than 2 minutes. Continue medical management per primary team. Continue supportive measures.
[2020-05-23] MEDS: Atorvastatin Calcium 40 MG TAB PO SCH (19:40)
[2020-05-23] MEDS: Acetaminophen 650 MG Suppository PR PRN (20:45)
[2020-05-24] MEDS: Atropine Sulfate 1% Ophth Soln 5 ml Bottle PO PRN ×2 (01:05→04:49)
[2020-05-24] MEDS: Morphine 2 MG/ML VIAL SLOW IVP PRN ×2 (01:10→04:49)
[2020-05-24] MEDS: Aspirin 300 MG Suppository PR SCH (08:58)
[2020-05-24] MEDS: Famotidine/PF 20 mg/2ml Vial SLOW IVP SCH ×2 (08:59→21:01)
[2020-05-24] MEDS ORDERED: Aspirin 300 MG Suppository PR SCH (09:00)
--- NOTE | 2020-05-24 15:52 | PDOC.HOSPP ---
- Subjective Encounter Date: 05/24/20 Encounter Time: 10:40 Subjective: Patient remains the same no neurological recovery. His speech therapy recommended nectar thick liquid. I do not think patient is able to have a p.o. intake he is not ill alert enough. Hospice evaluation pending. Will provide D5 half-normal saline for maintenance as well as for glucose. - Objective Vital Signs & Weight: Vital Signs (12 hours) Temp Pulse Resp BP BP Pulse Ox 05/24/20 11:50 99.4 F 75 20 142/85 H 97 05/24/20 11:23 99.5 F 75 26 H 142/85 H 97 05/24/20 08:58 98 05/24/20 07:38 98.5 F 76 26 H 134/74 98 05/24/20 04:55 99.1 F 93 28 H 118/74 96 Weight Weight 162 lb 4 oz Most Recent Monitor Data Heart Rate from ECG 95 NIBP 155/93 NIBP BP-Mean 107 Respiration from ECG 22 SpO2 91 I&O: 05/23/20 05/24/20 05/25/20 06:59 06:59 06:59 Intake Total 509 21 Output Total 775 400 Balance -266 -379 Result Diagrams: 05/23/20 05:30 05/23/20 05:30 Additional Labs: Accuchecks 05/24/20 11:25 POC Glucose 114 H Hospitalist ROS - Medication Medications: Active Medications Generic Name Dose Route Start Last Admin Trade Name Freq PRN Reason Stop Dose Admin Acetaminophen 650 mg 05/20/20 18:03 05/23/20 20:45 Tylenol [place] 650 mg Q4H PRN Administration Headache/Fever/Mild Pain (1-3) Aspirin 300 mg 05/24/20 09:00 05/24/20 08:58 Aspirin [place] 300 mg DAILY ELSIE Administration Atorvastatin Calcium 40 mg 05/20/20 21:00 05/23/20 19:40 Lipitor PO Not Given HS ELSIE Atropine Sulfate 0 drop 05/23/20 10:43 05/24/20 04:49 Atropine 1% Ophth Soln PO 2 drp Q4H PRN Administration Dry Eyes Famotidine 20 mg 05/20/20 21:00 05/24/20 08:59 Pepcid SLOW IVP 20 mg Q12HR ELSIE Administration Nicardipine HCl 25 mg/ Sodium 250 mls @ 0 mls/hr 05/20/20 18:52 05/21/20 20: 11 Chloride IVPB 250 mls INF PRN Administration SBP > 180 or DBP > 105 Protocol Titrate Levetiracetam 500 mg/ Device 100 mls @ 200 mls/hr 05/21/20 21:00 05/24/20 08: 59 IVPB 100 mls BID ELSIE Administration Lorazepam 1 mg 05/23/20 10:45 05/23/20 22:10 Ativan SLOW IVP 1 mg Q4H PRN Administration Anxiety/Agitation Morphine Sulfate 2 mg 05/23/20 10:46 05/24/20 04:49 Morphine SLOW IVP 2 mg Q1H PRN Administration Dyspnea/Wheezing/SOB Scopolamine 3 mg 05/23/20 10:45 05/23/20 11:35 Transderm Scop TD 3 mg Q3D ELSIE Administration - Exam General Appearance: ill appearing Eye: PERRL Neck: supple Heart: RRR Respiratory: normal chest expansion Gastrointestinal: soft, normal bowel sounds Neurological: facial droop, hemiplegia, speech deficit Psychiatric: not oriented Hosp A/P - Plan worsening left hemiparesis Metabilic encephalopathy amyloid angiopathy s/p TPA normotensive. TSH normal range LDL is 169. N.p.o. for now until more clinical stabilization. I talked to the patient's daughter Demetrice at [phone] and updated her. is Keyshawn at [phone]. Palliative consult. prognosis guarded. - Brain MRI showed punctate acute infarct in the left cerebrum. Old lacunar infarct in the bilateral basal ganglia thalamus and brainstem. Evidence of old hemorrhage in the right basal ganglia chronic hypertensive encephalopathy associated with hypertensive changes and amyloid angiopathy. Echo showed EF of 60% mild mitral regurgitation moderately thickened aortic wall mild tricuspid regurgitation normal pulmonary artery pressure. I talked to his Meghan at [phone] along with their daughter and they are agreeable for hospice consult and their recommendations. DNAR His speech therapy recommended nectar thick liquid. I do not think patient is able to have a p.o. intake he is not ill alert enough. Hospice evaluation pending. Will provide D5 half-normal saline for maintenance as well as for glucose. Comfort care medications introduced. Hospice evaluation pending.
[2020-05-24] MEDS: D5 1/2 NS w/40 mEq KCL 1,000 ML IV SCH (16:24)
[2020-05-24] MEDS: Atorvastatin Calcium 40 MG TAB PO SCH (21:01)
[2020-05-25] MEDS: Morphine 2 MG/ML VIAL SLOW IVP PRN ×4 (03:14→15:46)
[2020-05-25] MEDS: Atropine Sulfate 1% Ophth Soln 5 ml Bottle PO PRN ×2 (03:20→15:55)
[2020-05-25 07:37] VITALS: BP 170/83; TEMP 100.5
[2020-05-25] MEDS: Famotidine/PF 20 mg/2ml Vial SLOW IVP SCH (10:00)
[2020-05-25] MEDS: Aspirin 300 MG Suppository PR SCH (10:02)
[2020-05-25] MEDS: D5 1/2 NS w/40 mEq KCL 1,000 ML IV SCH (13:17)
--- NOTE | 2020-05-26 13:22 | DIS ---
DATE OF ADMISSION: 05/20/2020 DATE OF DISCHARGE: 05/25/2020 DISCHARGE DIAGNOSES: 1. Right hemiparesis. 2. Expressive aphasia. 3. Hypertensive emergency with a history of hypertension, status post tPA in the ER. 4. History of hypertension. 5. History of vertigo. 6. Hyperlipidemia. IMAGING STUDIES: Brain MRI showed a punctate acute infarct in the left cerebrum. Old lacunar infarct in the bilateral basal ganglia, thalamus, and brainstem. Repeat CT head 24-hour post tPA, no evidence of hemorrhage. He was started on Keppra for seizure prophylaxis. EEG was negative for seizure activity. DISCHARGE MEDICATIONS: 1. Ativan 1 mg as needed for agitation. 2. Aspirin 81 mg daily. 3. Scopolamine 3 mg topical every three days as needed. 4. Morphine 2 mg slow IV push q.2 hours p.r.n. CONSULTS: Neurology consult with Dr. Vincent. PERTINENT LAB FINDINGS: TSH normal range. LDL 169. Echo showed EF of 60% with mild mitral regurgitation. Please review the H and P and daily progress notes including progress note on the day of discharge for more details. HOSPITAL COURSE: A 75-year-old male with a history of CVA in the past without any residual symptoms and hypertension, presented with hypertensive emergency and new onset of right hemiparesis. He had tPA in the ER and then admitted in the ICU. Post tPA CT head did not show any acute hemorrhage, however, MRA did show punctate hemorrhage an as well as amyloid encephalopathy. Regarding his hypertensive emergency, he was status post labetalol as well as transient Cardene drip. Over the course of his hospitalization neurologically no sign of any improvement. The patient was not oriented and he still has expressive aphasia and flaccid right side. Family adopted DNR and consented for hospice evaluation. The patient is transferred to inpatient hospice care hemodynamically in stable condition. DISCHARGE INSTRUCTIONS: Activity with supervision. Speech Therapy recommended nectar thick liquid. However, patient's mentation was not alert enough to have nectar thick liquid. Consider pleasure food if he is alert. Comfort care management. Discharge time took over 35 minutes. Job ID: [id number] [facility]
== END 2020-05-25 18:02 | disposition hospice, inpatient (51) | DRG 56 ==
LOC: ERS 16:29 → CCU 18:03 → T4-A 05-22 15:33
PROVIDERS: ADMIT Internal Medicine; ATTEND Internal Medicine
DX: I69.351 Hemiplegia and hemiparesis following cerebral infarction affecting right dominant side (principal); R40.2212 Coma scale, best verbal response, none, at arrival to emergency department; G93.41 Metabolic encephalopathy; I16.1 Hypertensive emergency; E85.4 Organ-limited amyloidosis; R47.01 Aphasia; I68.0 Cerebral amyloid angiopathy; E78.5 Hyperlipidemia, unspecified; R29.810 Facial weakness; Z51.5 Encounter for palliative care; I10 Essential (primary) hypertension; J44.9 Chronic obstructive pulmonary disease, unspecified; R40.2142 Coma scale, eyes open, spontaneous, at arrival to emergency department; R29.715 NIHSS score 15; R47.89 Other speech disturbances; R40.2362 Coma scale, best motor response, obeys commands, at arrival to emergency department; Z87.891 Personal history of nicotine dependence
CPT/HCPCS: 36415; 36416; 51702; 70450; 70496; 70498; 70553; 80048; 80053; 80061; 81003; 82550; 82553; 82805; 83036; 83605; 83735; 84100; 84443; 84484; 85025; 85610; 85730; 87635; 93005; 93010; 93306; 93880; 95712; 95816; 95819; 95957; 96365; 99292; A9579; J0360; J1953; J2060; J2270; J2997; J3480; J7050; Q9967; S0028; U0003